=== PATIENT | female | born 1990 | race Two or more races ===

== ENCOUNTER 2024-01-14 07:19 | Emergency (ER) | payer SELFPAY ==
[~2024-01-14] VITALS: Ht 157.5 cm; Wt 50.0 kg
[2024-01-14 07:42] VITALS: BP 124/94; PULSE 108; RESP 16; O2SAT 100
== END 2024-01-14 16:18 | disposition left against medical advice (07) ==
LOC: ER 07:19 → EDBD 07:19 → EDSEX 07:19 → ER 16:18
DX: F31.9 Bipolar disorder, unspecified (principal); F15.90 Other stimulant use, unspecified, uncomplicated
CPT/HCPCS: 36415; 80320